=== PATIENT | female | born 1965 ===

== ENCOUNTER 2021-02-13 20:53 | Inpatient (IN) ==
[2021-02-14] MEDS ORDERED: *HR* Heparin 5,000 UNIT/ML VIAL IVP PRN ×2 (02:03)
[2021-02-14] MEDS ORDERED: *HR* Heparin 5,000 UNIT/ML VIAL IVP ONE (02:03)
[2021-02-14] MEDS ORDERED: Naloxone 0.4 MG/ML INJ IVP PRN (02:04)
[2021-02-14] MEDS ORDERED: Perflutren Lipid Microsphere 1.3 ML in 0.9 % Sodium Chloride 8.7 ML IVP PRN (02:28)
[2021-02-14 02:33] LABS: Basophils % 0.3 %; Hematocrit 39.6 % (35.3-44.9); Hemoglobin 12.5 g/dL (11.5-15.4); Immature Granulocytes % 0.8 % (0-4); Lymphocytes # 0.8 K/mcL (0.6-4.6); Lymphocytes % 22.8 %; Mean Corpuscular HGB Conc 31.6 g/dL (31.6-35.5); Mean Corpuscular Hemoglobin 28.6 pg (28.0-33.3); Mean Corpuscular Volume 90.6 fL (83.0-100.0); Mean Platelet Volume 9.9 fL (9.4-12.4); Monocytes # 0.1 K/mcL (0.0-1.3); Neutrophils # 2.7 K/mcL (1.6-8.9); Platelet Count 177 K/mcL (140-400); Red Blood Count 4.37 M/mcL (3.82-4.97); Red Cell Distribution Width 12.5 % (11.5-14.5); Segmented Neutrophils % 73.1 %; White Blood Count 3.6 K/mcL (4.3-11.1)
[2021-02-14 02:41] LABS: Heparin anti-factor XA UFH 0.61 IU/mL (0.30-0.70); INR 1.1; Prothrombin Time 12.2 Seconds (9.4-12.1)
[2021-02-14 02:54] LABS: Alanine Aminotransferase 23 Units/L (7-52); Albumin 4.1 g/dL (3.5-5.7); Albumin/Globulin Ratio 1.6 (1.1-2.2); Alkaline Phosphatase 74 Units/L (34-104); Aspartate Amino Transferase 20 Units/L (13-39); BUN/Creatinine Ratio 14 (6-26); Bilirubin,Total 0.5 mg/dL (0.3-1.0); Blood Urea Nitrogen 11 mg/dL (6-20); Calcium 8.7 mg/dL (8.6-10.3); Carbon Dioxide 24 mEq/L (23-29); Chloride 105 mEq/L (98-107); Chol/HDL Ratio 3.2 (0-4.9); Cholesterol 138 mg/dL (< 200); Globulin 2.5 g/dL (2.4-3.5); Glucose 151 mg/dL (70-105); HDL Cholesterol 43 mg/dL (40-59); LDL Cholesterol,Calculated 83 mg/dL (< 100); Osmolality,Calculated 288 (280-300); Potassium 3.8 mEq/L (3.5-5.1); Sodium 138 mEq/L (136-145); Total Protein 6.6 g/dL (6.4-8.9); Triglycerides 62 mg/dL (< 150); eGFR For African Americans > 60 (> 60); eGFR For Non-African Americans > 60 (> 60)
[2021-02-14 03:00] LABS: Troponin I 0.43 ng/mL (< 0.04)
[2021-02-14] MEDS: Nitroglycerin 0.4 MG TAB.SUBL SL PRN ×4 (03:13→20:45)
[2021-02-14] MEDS: Ondansetron 4 MG/2 ML VIAL IVP PRN ×3 (03:20→23:12)
[2021-02-14] MEDS: Heparin 25,000UNIT/250ML 1/2NS 25,000 UNIT/250 ML IV.SOLN IVC SCH ×2 (03:20→20:34)
[2021-02-14 05:02] LABS: C-Reactive Protein 9 mg/L (Less than 10)
[2021-02-14 05:09] LABS: Estimated Average Glucose 126 mg/dl
[2021-02-14] MEDS ORDERED: Loratadine/Pseudophed (12 HR) 1 EACH TABLET PO SCH (09:00)
[2021-02-14] MEDS: Aspirin 81 MG TAB.CHEW PO SCH (09:55)
[2021-02-14] MEDS ORDERED: Chloraseptic Spray 177 ML BOTTLE MM PRN (13:58)
[2021-02-14] MEDS ORDERED: Saline Nasal Spray 44 ML BOTTLE NS PRN (13:58)
[2021-02-14] MEDS ORDERED: Saliva Stimulant 44.3ml BOTTLE PO PRN (13:58)
[2021-02-14] MEDS ORDERED: Ketorolac 15 MG/ML VIAL IVP ONE (14:47)
[2021-02-14] MEDS: Ipratropium 1 PUFF INHALER IH SCH ×3 (16:11→23:34)
[2021-02-14] MEDS: Lactobacillus 1 EACH CAP.SPRINK PO SCH (20:35)
[2021-02-14] MEDS: Chlorhexidine Rinse 15 ML MOUTHWASH MM SCH (20:35)
[2021-02-14] MEDS: Artificial Tears SOLN 15 ML BOTTLE BOTH EYES SCH (20:47)
[2021-02-14] MEDS ORDERED: Isovue-370 500 ML BOTTLE IVP ONE (21:16)
[2021-02-14] MEDS ORDERED: MethylPREDNISolone 40 MG/ML VIAL IVP ONE (22:56)
[2021-02-15] MEDS ORDERED: MethylPREDNISolone 40 MG/ML VIAL IVP ONE (01:00)
[2021-02-15] MEDS: Ipratropium 1 PUFF INHALER IH SCH ×4 (03:55→20:14)
[2021-02-15 04:13] LABS: ABG Base Excess 2 mEq/L (-2 to 3); ABG HCO3 27 mEq/L (21-27); ABG Oxygen Saturation 96 % (95-98); ABG PCO2 43 mmHg (35-45); ABG PH 7.41 pH Units (7.32-7.45); ABG PO2 81 mmHg (85-104); ABG TCO2 28 mEq/L (20-26)
[2021-02-15] MEDS: Budesonide/Formoterol 160/4.5 1 PUFF INH IH SCH (07:37)
[2021-02-15] MEDS: Multivit/Ca/Min/Fe/FA 1 TAB TABLET PO SCH (08:17)
[2021-02-15] MEDS: Lactobacillus 1 EACH CAP.SPRINK PO SCH ×2 (08:17→21:14)
[2021-02-15] MEDS: Loratadine 10 MG TABLET PO SCH (08:17)
[2021-02-15] MEDS: Aspirin 81 MG TAB.CHEW PO SCH (08:17)
[2021-02-15] MEDS: Cholecalciferol (D-3) 1,000 UNIT (25MCG) TABLET PO SCH (08:17)
[2021-02-15] MEDS: Artificial Tears SOLN 15 ML BOTTLE BOTH EYES SCH ×2 (08:33→21:47)
[2021-02-15 08:51] LABS: Basophils % 0.2 %; Hematocrit 39.6 % (35.3-44.9); Hemoglobin 12.8 g/dL (11.5-15.4); Immature Granulocytes % 0.9 % (0-4); Lymphocytes % 20.2 %; Mean Corpuscular HGB Conc 32.3 g/dL (31.6-35.5); Mean Corpuscular Hemoglobin 29.1 pg (28.0-33.3); Mean Platelet Volume 10.1 fL (9.4-12.4); Monocytes # 0.2 K/mcL (0.0-1.3); Monocytes % 3.9 %; Platelet Count 199 K/mcL (140-400); Red Cell Distribution Width 12.5 % (11.5-14.5); Segmented Neutrophils % 74.8 %
[2021-02-15 08:52] LABS: Lymphocytes # 1.2 K/mcL (0.6-4.6); Neutrophils # 4.3 K/mcL (1.6-8.9); White Blood Count 5.7 K/mcL (4.3-11.1)
[2021-02-15 09:12] LABS: Alanine Aminotransferase 23 Units/L (7-52); Albumin 4.1 g/dL (3.5-5.7); Albumin/Globulin Ratio 1.5 (1.1-2.2); Alkaline Phosphatase 70 Units/L (34-104); Aspartate Amino Transferase 19 Units/L (13-39); BUN/Creatinine Ratio 16 (6-26); Bilirubin,Total 0.5 mg/dL (0.3-1.0); Blood Urea Nitrogen 13 mg/dL (6-20); Calcium 8.9 mg/dL (8.6-10.3); Carbon Dioxide 26 mEq/L (23-29); Chloride 104 mEq/L (98-107); Glucose 161 mg/dL (70-105); Magnesium 2.1 mg/dL (1.6-2.6); Osmolality,Calculated 290 (280-300); Phosphorous 3.1 mg/dL (2.7-4.5); Sodium 138 mEq/L (136-145); Total Protein 6.8 g/dL (6.4-8.9); eGFR For African Americans > 60 (> 60); eGFR For Non-African Americans > 60 (> 60)
[2021-02-15 09:13] LABS: Globulin 2.7 g/dL (2.4-3.5); Lactate Dehydrogenase 127 Units/L (140-271)
[2021-02-15 09:30] LABS: Ferritin 273 ng/mL (10-120)
[2021-02-15 09:52] LABS: C-Reactive Protein < 5 mg/L (Less than 10)
[2021-02-15] MEDS: Chlorhexidine Rinse 15 ML MOUTHWASH MM SCH ×2 (11:13→21:14)
[2021-02-15] MEDS: Gabapentin 100 MG CAPSULE PO SCH ×3 (11:50→21:14)
[2021-02-15] MEDS: Furosemide 20 MG TABLET PO SCH (21:13)
[2021-02-15] MEDS: Ondansetron 4 MG/2 ML VIAL IVP PRN (21:25)
[2021-02-15] MEDS: Benzonatate 100 MG CAPSULE PO PRN (21:26)
[2021-02-15] MEDS: Heparin 25,000UNIT/250ML 1/2NS 25,000 UNIT/250 ML IV.SOLN IVC SCH (22:51)
[2021-02-16 02:13] LABS: Basophils % 0.2 %; Hematocrit 39.1 % (35.3-44.9); Hemoglobin 12.3 g/dL (11.5-15.4); Immature Granulocytes % 1.2 % (0-4); Lymphocytes # 1.9 K/mcL (0.6-4.6); Lymphocytes % 20.9 %; Mean Corpuscular HGB Conc 31.5 g/dL (31.6-35.5); Mean Corpuscular Hemoglobin 28.6 pg (28.0-33.3); Mean Corpuscular Volume 90.9 fL (83.0-100.0); Mean Platelet Volume 9.6 fL (9.4-12.4); Monocytes # 0.5 K/mcL (0.0-1.3); Neutrophils # 6.4 K/mcL (1.6-8.9); Platelet Count 214 K/mcL (140-400); Red Cell Distribution Width 12.8 % (11.5-14.5); Segmented Neutrophils % 71.7 %
[2021-02-16 02:14] LABS: White Blood Count 8.9 K/mcL (4.3-11.1)
[2021-02-16 02:20] LABS: Heparin anti-factor XA UFH 0.67 IU/mL (0.30-0.70)
[2021-02-16 02:24] LABS: D-Dimer < 215 ng/mLFEU (0-500)
[2021-02-16 02:40] LABS: Alanine Aminotransferase 21 Units/L (7-52); Albumin 3.9 g/dL (3.5-5.7); Albumin/Globulin Ratio 1.4 (1.1-2.2); Alkaline Phosphatase 67 Units/L (34-104); Aspartate Amino Transferase 18 Units/L (13-39); BUN/Creatinine Ratio 19 (6-26); Bilirubin,Total 0.6 mg/dL (0.3-1.0); Blood Urea Nitrogen 17 mg/dL (6-20); C-Reactive Protein < 5 mg/L (Less than 10); Calcium 8.9 mg/dL (8.6-10.3); Carbon Dioxide 29 mEq/L (23-29); Chloride 99 mEq/L (98-107); Globulin 2.8 g/dL (2.4-3.5); Glucose 111 mg/dL (70-105); Lactate Dehydrogenase 134 Units/L (140-271); Magnesium 1.8 mg/dL (1.6-2.6); Osmolality,Calculated 284 (280-300); Potassium 3.9 mEq/L (3.5-5.1); Sodium 136 mEq/L (136-145); Total Protein 6.7 g/dL (6.4-8.9); eGFR For African Americans > 60 (> 60); eGFR For Non-African Americans > 60 (> 60)
[2021-02-16 02:52] LABS: Ferritin 336 ng/mL (10-120)
[2021-02-16] MEDS: Ipratropium 1 PUFF INHALER IH SCH ×4 (03:54→19:35)
[2021-02-16] MEDS: Sennosides/Docusate Sodium TABLET PO PRN ×2 (05:28→21:02)
[2021-02-16] MEDS: Budesonide/Formoterol 160/4.5 1 PUFF INH IH SCH (07:49)
[2021-02-16] MEDS: Furosemide 20 MG TABLET PO SCH (09:55)
[2021-02-16] MEDS: Lactobacillus 1 EACH CAP.SPRINK PO SCH ×2 (09:56→20:46)
[2021-02-16] MEDS: Aspirin 81 MG TAB.CHEW PO SCH (09:56)
[2021-02-16] MEDS: Cholecalciferol (D-3) 1,000 UNIT (25MCG) TABLET PO SCH (09:56)
[2021-02-16] MEDS: Gabapentin 100 MG CAPSULE PO SCH ×3 (09:57→20:46)
[2021-02-16] MEDS: Multivit/Ca/Min/Fe/FA 1 TAB TABLET PO SCH (09:57)
[2021-02-16] MEDS: Chlorhexidine Rinse 15 ML MOUTHWASH MM SCH ×2 (09:58→20:53)
[2021-02-16] MEDS: Artificial Tears SOLN 15 ML BOTTLE BOTH EYES SCH ×2 (09:59→20:52)
[2021-02-16] MEDS: Loratadine 10 MG TABLET PO SCH (09:59)
[2021-02-16] MEDS: DilTIAZem 50 MG/50 ML IV.SOLN IVC SCH ×3 (14:01→23:59)
[2021-02-16] MEDS: Benzonatate 100 MG CAPSULE PO PRN (20:46)
[2021-02-16] MEDS: Ondansetron 4 MG/2 ML VIAL IVP PRN (23:32)
[2021-02-16] MEDS ORDERED: Acetaminophen 325 MG TABLET PO PRN (23:43)
[2021-02-17 03:24] LABS: Basophils % 0.4 %; Hematocrit 40.3 % (35.3-44.9); Hemoglobin 12.6 g/dL (11.5-15.4); Immature Granulocytes % 1.5 % (0-4); Lymphocytes # 1.5 K/mcL (0.6-4.6); Lymphocytes % 18.6 %; Mean Corpuscular HGB Conc 31.3 g/dL (31.6-35.5); Mean Corpuscular Hemoglobin 28.1 pg (28.0-33.3); Mean Platelet Volume 9.9 fL (9.4-12.4); Monocytes # 0.4 K/mcL (0.0-1.3); Neutrophils # 6.1 K/mcL (1.6-8.9); Platelet Count 204 K/mcL (140-400); Red Blood Count 4.48 M/mcL (3.82-4.97); Red Cell Distribution Width 12.8 % (11.5-14.5); Segmented Neutrophils % 74.5 %; White Blood Count 8.2 K/mcL (4.3-11.1)
[2021-02-17 03:47] LABS: Alanine Aminotransferase 19 Units/L (7-52); Albumin 3.8 g/dL (3.5-5.7); Albumin/Globulin Ratio 1.4 (1.1-2.2); Alkaline Phosphatase 60 Units/L (34-104); Aspartate Amino Transferase 17 Units/L (13-39); BUN/Creatinine Ratio 19 (6-26); Bilirubin,Total 0.8 mg/dL (0.3-1.0); Blood Urea Nitrogen 18 mg/dL (6-20); C-Reactive Protein 54 mg/L (Less than 10); Calcium 8.7 mg/dL (8.6-10.3); Carbon Dioxide 28 mEq/L (23-29); Chloride 98 mEq/L (98-107); Globulin 2.7 g/dL (2.4-3.5); Glucose 127 mg/dL (70-105); Lactate Dehydrogenase 162 Units/L (140-271); Magnesium 1.9 mg/dL (1.6-2.6); Osmolality,Calculated 283 (280-300); Phosphorous 3.2 mg/dL (2.7-4.5); Potassium 3.5 mEq/L (3.5-5.1); Sodium 135 mEq/L (136-145); Total Protein 6.5 g/dL (6.4-8.9); eGFR For African Americans > 60 (> 60); eGFR For Non-African Americans > 60 (> 60)
[2021-02-17] MEDS: Ipratropium 1 PUFF INHALER IH SCH ×3 (03:53→15:23)
[2021-02-17 04:02] LABS: Ferritin 349 ng/mL (10-120)
[2021-02-17] MEDS: Sennosides/Docusate Sodium TABLET PO PRN (05:14)
[2021-02-17] MEDS: Budesonide/Formoterol 160/4.5 1 PUFF INH IH SCH (07:22)
[2021-02-17] MEDS: Cholecalciferol (D-3) 1,000 UNIT (25MCG) TABLET PO SCH (08:09)
[2021-02-17] MEDS: Aspirin 81 MG TAB.CHEW PO SCH (08:09)
[2021-02-17] MEDS: Multivit/Ca/Min/Fe/FA 1 TAB TABLET PO SCH (08:09)
[2021-02-17] MEDS: Furosemide 20 MG TABLET PO SCH (08:09)
[2021-02-17] MEDS: Lactobacillus 1 EACH CAP.SPRINK PO SCH (08:09)
[2021-02-17] MEDS: Gabapentin 100 MG CAPSULE PO SCH ×2 (08:09→15:47)
[2021-02-17] MEDS: Loratadine 10 MG TABLET PO SCH (08:09)
[2021-02-17] MEDS: Chlorhexidine Rinse 15 ML MOUTHWASH MM SCH (08:10)
[2021-02-17] MEDS: Heparin 25,000UNIT/250ML 1/2NS 25,000 UNIT/250 ML IV.SOLN IVC SCH (08:30)
[2021-02-17] MEDS: Artificial Tears SOLN 15 ML BOTTLE BOTH EYES SCH (08:33)
[2021-02-17] MEDS ORDERED: DilTIAZem CD (24hr) 120 MG CAP.ER.24H PO SCH (09:00)
[2021-02-17] MEDS ORDERED: polyethylene glycoL 3350 17 GM POWD.PACK PO SCH (09:45)
[2021-02-17] MEDS: Benzonatate 100 MG CAPSULE PO PRN (09:47)
[2021-02-17] MEDS ORDERED: Apixaban 5 MG TABLET PO SCH (12:30)
[2021-02-17 16:19] VITALS: BP 116/65
== END 2021-02-17 17:45 | disposition home health service (06) | DRG 280 ==
LOC: 2NENU → SUATTDRO 02-14
PROVIDERS: ADMIT Internal Medicine; ATTEND Internal Medicine